=== PATIENT | male | born 1965 | race Caucasian/White ===

== ENCOUNTER → 2021-08-27 | Outpatient (CLI) | payer MEDICAID ==
[~2021-08-27] MED LIST: ALBU17AE23 IH; ALBU17AE23 INH; ALBU17AE3; DOXY100C2; DOXY100C2 PO; LEVO500T81 PO; LNS30CCR PO; MELO7.5T PO; PRD20T PO; PRD50T PO; TIOT18CA INH; VALA10007 PO
--- NOTE | 2021-08-27 10:10 | Diagnostic Imaging Report ---
EXAMINATION: CT chest without contrast (lung screening). TECHNIQUE: Multiple contiguous axial images were obtained through the chest without the use of intravenous contrast according to lung cancer screening protocol. All CT scans use one or more of the following dose optimizing techniques: automated exposure control, MA and/or KvP adjustment based on patient size and exam type or iterative reconstruction. HISTORY: 62 pack year history of smoking. COMPARISON: None available. FINDINGS: There is no edema or pneumonia. No pleural effusion. No pneumothorax. No suspicious nodules. There is a small amount of mucus in the airway and few areas of mucus plugging and tree-in-bud nodularity consistent with chronic bronchitis. There is mild lingular atelectasis. There is no axillary or supraclavicular lymphadenopathy. There is no mediastinal lymphadenopathy. Heart size is normal. There are mild coronary artery calcifications. No pericardial effusion. Aorta is normal in caliber. Limited views of the upper abdomen are unremarkable. There are no suspicious osseous lesions. IMPRESSION: 1. No suspicious pulmonary nodules. LUNG-RADS CATEGORY: 2 MODIFIER: None. Dictated by: Dictated on workstation # [id number]
== END ==
LOC: RAD 09:45
PROVIDERS: ATTEND Nurse Practitioner Family
DX: Z12.2 Encounter for screening for malignant neoplasm of respiratory organs (principal); J44.9 Chronic obstructive pulmonary disease, unspecified; F17.210 Nicotine dependence, cigarettes, uncomplicated
CPT/HCPCS: 71271

== ENCOUNTER 2021-12-12 05:38 | Outpatient (CLI) | payer MEDICAID ==
[~2021-12-12] VITALS: Ht 172.7 cm; Wt 71.9 kg
[2021-12-12] MEDS ORDERED: ALB0.5V INH (09:11)
[2021-12-12] MEDS ORDERED: OMEP20CA18 PO (09:11)
[2021-12-12] MEDS ORDERED: CELE-63 PO (09:11)
[2021-12-12] MEDS ORDERED: ATOR20TA66 PO (09:11)
[2021-12-12] MEDS ORDERED: TIOT18CA2 IH (09:11)
== END 2021-12-12 09:13 ==
LOC: PREOP 05:38 → EDSTATUS 12:00
PROVIDERS: ATTEND Surgery
DX: Z01.818 Encounter for other preprocedural examination (principal)

== ENCOUNTER 2021-12-23 08:32 | Day surgery (SDC) | payer MEDICAID ==
[~2021-12-23] VITALS: Ht 173 cm; Wt 71.9 kg
[~2021-12-23 08:32] MED LIST changes: +ALB0.5V INH; +ATOR20TA66 PO; +CELE-63 PO; +OMEP20CA18 PO; +TIOT18CA2 IH
[2021-12-23] MEDS ORDERED: LACTATED RINGERS 1,000 ML IV ONE (08:41)
--- NOTE | 2021-12-23 08:45 | Progress Note-Pre Operative ---
Pre-Operative Progress Note H&P Reviewed The H&P was reviewed, patient examined and no changes noted. Time Seen by Provider: 08:41 Date H&P Reviewed: Dec 23, 2021 Time H&P Reviewed: 08:41 Pre-Operative Diagnosis: Chronic Gastritis, Screening Colonoscopy YEYO PARMAR DO Dec 23, 2021 08:45
[2021-12-23 08:50] VITALS: BP 122/85
[2021-12-23] MEDS ORDERED: LACTATED RINGERS 1,000 ML IV STA (08:58)
[2021-12-23] MEDS ORDERED: HURRICAINE EXT TUBE (BENZOCAINE) XX PRN (09:00)
[2021-12-23] MEDS ORDERED: MIDAZOLAM 2 MG/2 ML (VERSED) VIAL ONE (09:41)
[2021-12-23] MEDS ORDERED: PROPOFOL INJECTION 50 ML IV ONE (09:41)
[2021-12-23] MEDS ORDERED: ATROPINE INJ 0.4 MG/ML SDV ONE (10:02)
[2021-12-23 10:25] VITALS: BP 111/70
--- NOTE | 2021-12-23 10:29 | Progress Note-Post Operative ---
Post-Operative Progess Note Surgeon (s)/Size Roller Operator (s) Surgeon YEYO PARMAR DO Size Roller Operator: Zack Elizabeth, MSIII Pre-Operative Diagnosis Chronic Gastritis, Screening Colonoscopy Post-Operative Diagnosis Gastritis ??Ulcer Esophagitis small hiatal hernia Diverticula colitis int hemorrhoids Procedure & Operative Findings Date of Procedure 12/23/21 Procedure Performed/Findings EGD with bx Colonoscopy with bx PROCEDURE NOTE: After informed consent was obtained, the patient was brought to the endoscopy suite, placed in bed in left lateral decubitus position. He was administered IV sedation by the FOOD SAFETY AUDITOR who then monitored vitals the entire time, heart rate, blood pressure and pulse ox and the scope was inserted down the mouth through the esophagus into the stomach. On the way down, noted some mild esophagitis, took a picture, pushed into the stomach, pushed past the antrum into the duodenum. Duodenum looked good. Pulled back and did a biopsy of antrum and saw what looked like possibly an ulcer; elected to biopsy it as well. Then retroflexed the scope, saw a small hiatal hernia, took a picture of this and then pulled the scope into the GE junction, took another picture of the esophagitis and then did a biopsy of the GE junction. Pushed the scope back into the stomach, suctioned all the air out of the stomach. At this point pulled the scope up the esophagus and out the mouth. Switched camera, switched gloves, went down below, started the colonoscopy. Pushed all the way into about 140 cm to get all the way to cecum, took a picture of the appendiceal orifice, noted the ileocecal valve and then slowly withdrew the scope, insufflating to look circumferentially at the gonzales starting in the cecum, up the ascending colon to the hepatic flexure, then down the transverse colon to the splenic flexure. Somewhere through heare saw some inflammation/colitis and elected to do a biopsy. Almost looked like an ulceration. Continued into the descending colon, down into the sigmoid (saw some diverticula) and finally into the rectum, retroflexed in the rectal vault, saw some minimal internal hemorrhoids and took a picture of this. The patient tolerated the procedure and he recovered in the endoscopy suite. Anesthesia Type IV sedation by FOOD SAFETY AUDITOR Estimated Blood Loss Estimated blood loss (mL): scant Specimens/Packing Specimens Removed antral bx body of stomach gastric ulcer bx GE jxn bx Colitis bx YEYO PARMAR DO Dec 23, 2021 10:29
[2021-12-23 10:30] VITALS: BP 113/81
--- NOTE | 2021-12-23 10:30 | Endoscopy Discharge Instruct ---
Endo Procedure/Findings Findings 1.: Hiatal Hernia, Gastritis 2.: Colitis 3.: Diverticulosis 4.: Internal Hemorrhoids Discharge Instructions - Activity: You might feel a little sleepy until tomorrow. This is due to the medicine you received to relax you. Until tomorrow, you should: NOT drive a car, operate machinery or power tools. NOT drink any alcoholic beverages. NOT make any important decisions or sign importortant papers. Do not return to work until tomorrow, unless otherwise instructed. Resume previous activities tomorrow. Diet: Start by taking liquids. If you tolerate liquids, advance to solid food. 1.: EGD in 3 years 2.: Colonscopy in 10 years Notify Physician - If you experience excessive bleeding, unusual abdominal pain, fever, or chest pain, contact your doctor immediately. YEYO PARMAR DO Dec 23, 2021 10:30
[2021-12-23 10:35] VITALS: BP 117/86
[2021-12-23 10:37] VITALS: BP 117/86
--- NOTE | 2021-12-23 10:50 | Anesthesia-General Post-Op ---
MAC Patient Condition Mental Status/LOC: Same as Preop Cardiovascular: Satisfactory Nausea/Vomiting: Absent Respiratory: Satisfactory Pain: Controlled Complications: Absent Post Op Complications Complications None Follow Up Care/Instructions Patient Instructions None needed. Anesthesiology Discharge Order Discharge Order Patient is doing well, no complaints, stable vital signs, no apparent adverse anesthesia problems. No complications reported per nursing. FAHAD SALDIVAR CRNA Dec 23, 2021 10:50
[2021-12-23 11:13] VITALS: BP 124/89
== END 2021-12-23 11:13 | disposition home or self-care (01) ==
LOC: ENDO 08:32
PROVIDERS: ATTEND Surgery
DX: Z12.11 Encounter for screening for malignant neoplasm of colon (principal); K29.50 Unspecified chronic gastritis without bleeding; K21.00 Gastro-esophageal reflux disease with esophagitis, without bleeding; K44.9 Diaphragmatic hernia without obstruction or gangrene; K57.30 Diverticulosis of large intestine without perforation or abscess without bleeding; K52.9 Noninfective gastroenteritis and colitis, unspecified; K64.8 Other hemorrhoids; F17.210 Nicotine dependence, cigarettes, uncomplicated; Z79.899 Other long term (current) drug therapy

== ENCOUNTER → 2022-05-12 | Outpatient (CLI) | payer MEDICAID ==
[~2022-05-12] MED LIST changes: +RT-ALBUTEROL SULF 2.5 MG/3 ML PRE-MIX VIAL INH ONE
== END ==
LOC: RT 13:00
PROVIDERS: ATTEND Nurse Practitioner Family
DX: J43.1 Panlobular emphysema (principal)
CPT/HCPCS: 94060; 94726; 94729

== ENCOUNTER 2023-01-24 20:42 | Emergency (ER) | payer MEDICAID ==
[~2023-01-24 20:42] MED LIST changes: +LEVO-55 PO; -LEVO500T81 PO; -RT-ALBUTEROL SULF 2.5 MG/3 ML PRE-MIX VIAL INH ONE
--- NOTE | 2023-01-24 21:20 | ED General ---
General Chief Complaint: Chest Wall Stated Complaint: INJ CHEST Source of Information: Patient Exam Limitations: No Limitations History of Present Illness Date Seen by Provider: January 24, 2023 Time Seen by Provider: 21:16 Initial Comments Patient is a 57-year-old male who presents ED with right-sided chest wall pain. Patient states Thursday he was cleaning out a old school house. States he loaded semibumpers on a pallet. He was moving the bumpers onto the semitrailer with a pallet yeimi when he slipped and fell hitting the pallet yeimi on the right sided of his chest. Patient states he had immediate pain. Pain is worse with deep inspiration sneezing or coughing. He Does have a history of emphysema. Patient states today he [place]. Denies of any bruising or swelling. Patient denies short of breath, [place] pain vomiting, headache, dizziness, middle lower back pain. Pain radiates from the right side of the chest to the sternum. Denies taking thing for pain. Patient denies hitting his head or loss of conscious Allergies and Home Medications Allergies Coded Allergies: NKANo Known Allergies (Unverified Allergy, Mild, 03/16/09) Patient Home Medication List Home Medication List Reviewed: Yes Albuterol Sulfate (Albuterol Sulfate) 2.5 Mg/0.5 Ml Vial.neb, 2.5 MG INH Q4H PRN for SHORTNESS OF BREATH, (Reported) Entered as Reported by: HARIS MCGREGOR on 12/12/21910 Atorvastatin Calcium (Atorvastatin Calcium) 20 Mg Tablet, 20 MG PO DAILY, (Reported) Entered as Reported by: HARIS MCGREGOR on 12/12/21910 Celecoxib (Celecoxib) 200 Mg Capsule, 200 MG PO DAILY, (Reported) Entered as Reported by: HARIS MCGREGOR on 12/12/21910 Hydrocodone/Acetaminophen (Hydrocodone-Acetamin 5-325 mg) 5 Mg-325 Mg Tablet, 1 TAB PO Q4H PRN for PAIN-MODERATE (5-7) Prescribed by: VIDHI UNDERWOOD on 01/24/232216 Omeprazole (Omeprazole) 20 Mg Capsule.dr, 20 MG PO DAILY, (Reported) Entered as Reported by: HARIS MCGREGOR on 3/24/22 0911 Tiotropium [place] (Spiriva) 1 Inh Aerp, 1 INH IH DAILY, (Reported) Entered as Reported by: HARIS MCGREGOR on 12/12/21 0911 Review of Systems Review of Systems Constitutional: No chills, No diaphoresis EENTM: No ear pain, No blurred vision, No double vision Respiratory: No cough, No dyspnea on exertion Cardiovascular: chest pain Gastrointestinal: No abdominal pain, No diarrhea, No nausea, No vomiting Genitourinary: No discharge Musculoskeletal: No back pain, No joint pain; muscle pain Skin: No change in color, No change in hair/nails All Other Systems Reviewed Negative Unless Noted: Yes Past [id number]-Fpfbbb-Aphgwm Hx Immunizations Up To Date First/Initial COVID19 Vaccinat: NO Second COVID19 Vaccination Josiah: NO Third COVID19 Vaccination Date: NO Seasonal Allergies Seasonal Allergies: No Past Medical History Surgeries: Yes (CARPAL TUNNEL) Respiratory: Yes COPD Cardiac: Yes High Cholesterol Neurological: Yes (WATERMAN'S PALSY) Reproductive Disorders: No Genitourinary: No Gastrointestinal: Yes (CHRONIC GASTRITIS) Musculoskeletal: No Endocrine: No HEENT: No Cancer: No Psychosocial: No Integumentary: No Blood Disorders: No Family Medical History No Pertinent Family Hx Physical Exam Vital Signs Vital Signs - First Documented 01/24/23 21:02 Temp 36.8 Pulse 103 Resp 18 B/P (MAP) 138/99 (112) Pulse Ox 95 O2 Delivery Room Air Capillary Refill : Height, Weight, BMI Height: 5'8" Weight: 140lbs. oz. 63.806352by; 24.02 BMI Method:Stated General Appearance: No Apparent Distress, WD/WN Eyes: Bilateral Eye Normal Inspection, Bilateral Eye PERRL, Bilateral Eye EOMI HEENT: PERRL/EOMI, TMs Normal, Normal ENT Inspection, Pharynx Normal Neck: Full Range of Motion, Normal Inspection, Non Tender, Supple Respiratory: Lungs Clear, Normal Breath Sounds, No Accessory Muscle Use, Other (Right-sided rib tenderness, mild right lateral rib sternal body tenderness. No bruising, swelling or redness) Cardiovascular: Regular Rate, Rhythm, No Edema, No Gallop, No JVD Gastrointestinal: Normal Bowel Sounds, No Organomegaly, No Pulsatile Mass Back: Normal Inspection, No Vertebral Tenderness Extremity: Normal Capillary Refill, Normal Inspection, Normal Range of Motion, Non Tender, No Calf Tenderness Neurologic/Psychiatric: Alert, Oriented x3, No Motor/Sensory Deficits, Normal Mood/Affect, fire extinguisher charger II-XII Norm as Tested Skin: Normal Color, Warm/Dry Progress/Results/Core Measures Suspected Sepsis SIRS Temperature: Pulse: Respiratory Rate: Blood Pressure / Mean: Results/Orders My Orders Orders - IZABELA NOBLE Ct Chest Wo (01/24/23 21:14) Vital Signs/I&O 01/24/23 01/24/23 21:02 21:02 Temp 36.8 Pulse 103 Resp 18 B/P (MAP) 138/99 (112) Pulse Ox 95 O2 Delivery Room Air Room Air Capillary Refill : Departure Communication (PCP) Patient is a 57-year-old male who presents to the ED for right-sided rib pain. Patient states Thursday he fell hitting the right side of his chest on a pallet yeimi. Patient states he had immediate pain. Pain became worse throughout the week with movement, coughing, sneezing. States reports started feeling popping sensation this evening and wanted to get evaluated. Reviewed previous ER visits, H&P, lab testing. Differential diagnosis of rib fracture, pneumothorax, chest wall contusion. Patient has no current shortness of breath, abdominal pain. No evidence of bruising or swelling. Due to the pain on the right side the ribs with some right-sided sternal tenderness, CT scan was ordered. Revie wed IV contrast. No evidence of retractions or frail chest. CT scan shows Nondisplaced fractures of the anterior aspect of the right 4th and 5th ribs. no evidence of pneumothorax, hemothorax. Refused anything for pain. Denies hitting his head or loss of consciousness. Discussed all results with patient. Will discharge with spirometer. Provided education. We will provide a few days worth of pain medication. Return precautions were discussed. Impression Primary Impression: Fracture of rib Disposition: HOME, SELF-CARE Condition: Stable Departure-Patient Inst. Decision time for Depature: 22:13 Referrals: [facility] (PCP/Family) Primary Care Physician Patient Instructions: Rib Fracture or Bruised Rib ED Add. Discharge Instructions: Recommend spirometer to prevent pneumonia. Pain medication as needed. Follow- up with your primary care physician later this week for further evaluation. Return back to ED if pain worsens or increasing short of breath All discharge instructions reviewed with patient and/or family. Voiced understanding. Scripts Hydrocodone/Acetaminophen (Hydrocodone-Acetamin 5-325 mg) 5 Mg-325 Mg Tablet 1 TAB PO Q4H PRN for PAIN-MODERATE (5-7), #8 TAB Prov: IZABELA NOBLE 01/24/23 IZABELA NOBLE January 24, 2023 21:19
--- NOTE | 2023-01-24 21:51 | Diagnostic Imaging Report ---
PROCEDURE: CT chest without contrast. TECHNIQUE: Multiple contiguous axial images were obtained through the chest without the use of intravenous contrast. Auto Exposure Controls were utilized during the CT exam to meet ALARA standards for radiation dose reduction. INDICATION: Right-sided rib pain status post fall. FINDINGS: There are nondisplaced fractures of the anterior aspect of the right 4th and 5th ribs. No other rib fracture is identified. The lungs appear clear. There is no consolidation or contusion. There is no evidence of pneumonia or edema. There is no effusion or evidence of a pneumothorax. The thoracic aorta is normal in caliber. The main pulmonary arteries are normal in size. Heart size is normal. There is no pericardial collection. The upper abdomen demonstrates no evidence of an acute process. Alignment of the spine appears maintained. Vertebral body heights are preserved. IMPRESSION: 1. Nondisplaced fractures of the anterior aspect of the right 4th and 5th ribs. No other rib fracture is evident. 2. Lungs clear without contusion or consolidation. There is no hemothorax or pneumothorax. Dictated by: Dictated on workstation # [id number]
[2023-01-24] MEDS ORDERED: ACHD5005 PO (22:17)
[2023-01-24 22:40] VITALS: BP 135/89
== END 2023-01-24 22:41 | disposition home or self-care (01) ==
LOC: EDUNIT# 20:42 → ER 20:46
DX: S22.41XA Multiple fractures of ribs, right side, initial encounter for closed fracture (principal); J43.9 Emphysema, unspecified; Z28.310 Unvaccinated for COVID-19; W20.8XXA Other cause of strike by thrown, projected or falling object, initial encounter; Y93.H3 Activity, building and construction; Y92.219 Unspecified school as the place of occurrence of the external cause
CPT/HCPCS: 71250; 94664